=== PATIENT | male | born 1955 | race Caucasian/White ===

== ENCOUNTER 2020-05-21 16:07 | Emergency (ER) | payer SELFPAY ==
[~2020-05-21] VITALS: Ht 177.8 cm; Wt 122.7 kg
[2020-05-21 16:17] VITALS: BP 175/90
[2020-05-21 18:09] VITALS: PULSE 72
== END 2020-05-21 18:09 | disposition home or self-care (01) ==
LOC: COL.ER 16:07
DX: S00.83XA Contusion of other part of head, initial encounter (principal); S43.004A Unspecified dislocation of right shoulder joint, initial encounter; F17.200 Nicotine dependence, unspecified, uncomplicated; Z88.0 Allergy status to penicillin; Z88.1 Allergy status to other antibiotic agents; Z88.2 Allergy status to sulfonamides; W11.XXXA Fall on and from ladder, initial encounter
CPT/HCPCS: J2060; J3010; J7030